=== PATIENT | female | born 1975 | race Caucasian/White ===

== ENCOUNTER 2024-10-28 23:16 | Emergency (ER) | payer MEDICAID ==
[~2024-10-28] VITALS: Ht 157.5 cm; Wt 54.0 kg
[2024-10-28 23:41] VITALS: O2SAT 100
[2024-10-29 00:15] LABS: HEMATOCRIT. 35.0 % (36.0-48.0); HEMOGLOBIN. 11.6 g/dL (12.0-16.0); MEAN PLATELET VOLUME 8.0 fl (7.4-10.4); PLATELET 286 x1000/uL (130-400); RED BLOOD CELL COUNT 4.04 mill/uL (4.2-5.4); RED CELL DISTRIBUTION WIDTH 14.5 % (11.6-14.6)
[2024-10-29 00:26] LABS: CREATININE 0.9 mg/dL (0.6-1.0); TROPONIN I HIGH SENSITIVITY < 4 ng/L (3.0-34); UREA NITROGEN BLOOD 7 mg/dL (9-23)
[2024-10-29] MEDS: ACETAMINOPHEN 325MG TABLET PO ONE (02:15)
[2024-10-29] MEDS ORDERED: NAPR-1176 MT (02:43)
[2024-10-29] MEDS ORDERED: LIDO-53 TP (02:43)
[2024-10-29 02:56] VITALS: BP 118/76; PULSE 88; RESP 16; TEMP 37; O2SAT 100
[2024-10-29 06:09] LABS: BAND% 1.0 % (1.0-6.0); LYMPHOCYTES % MANUAL 8.0 % (20.0-60.0); MONOCYTES % MANUAL 6.0 % (2.0-8.0); NEUTROPHILS % MANUAL 85.0 % (45.0-75.0)
[2024-10-29 06:10] LABS: PLATELET ESTIMATE NORMAL
== END 2024-10-29 02:56 | disposition home or self-care (01) ==
LOC: ER 10-29 00:19
DX: R07.9 Chest pain, unspecified (principal); M79.602 Pain in left arm; Z79.1 Long term (current) use of non-steroidal anti-inflammatories (NSAID)
CPT/HCPCS: 36415; 71045; 80048; 81025; 84484; 85025; 93005; 99285